=== PATIENT | female | born 1955 | race Two or more races ===

== ENCOUNTER 2021-07-23 10:12 | Emergency (ER) | payer MEDICARE, SELFPAY ==
--- NOTE | ~2021-07-23 | XR_ITS ---
EXAMINATION: XR CHEST CLINICAL INFORMATION: Cough COMPARISON: None TECHNIQUE: 2 views of the chest were obtained. FINDINGS: Very slight bibasilar atelectasis. No pneumothorax. Trachea is midline. Cardiomediastinal silhouette is not enlarged. Aorta demonstrates mild tortuosity with atherosclerotic calcifications. No large pleural effusion. Levocurvature of the thoracic spine with multilevel degenerative changes. Soft tissues are unremarkable. XR/XR chest 2V IMPRESSION: Very slight bibasilar atelectasis.
[2021-07-23 10:27] VITALS: BP 154/71; PULSE 64; RESP 19; TEMP 36.6; O2SAT 94; BMI 31.6
[2021-07-23 10:51] LABS: IDNOW Serial# 08D9AD1C; Strep A Nucleic Acid Negative (Negative)
[2021-07-23 11:09] LABS: COVID-19 Test Positive (Negative); IDNOW Serial# 16C4AD1C; Influenza A Negative (Negative); Influenza B2 Negative (Negative)
[2021-07-23] MEDS: Albuterol Sulfate 90 MCG 8 GM INHALER 2 PUFF INHALE (11:45)
[2021-07-23 11:47] VITALS: PULSE 91; RESP 16; O2SAT 97
--- NOTE | 2021-07-23 11:57 | ED_ITS ---
HPI - URI/Sore Throat General Chief Complaint: Upper Respiratory Symptoms Stated Complaint: covid symptoms, + home test Time Seen by Provider: 07/23/21 11:14 Source: patient Mode of arrival: ambulatory Limitations: language barrier History of Present Illness HPI Narrative: 66-year-old female presents for sore throat, dry cough, and body aches that started 4 days ago. Patient has a positive COVID test at home. She denies chest pain, shortness of breath, fever, abdominal pain, lightheadedness, dizziness, nausea, vomiting, diarrhea. Patient has been able to eat and drink. Related Data Previous Rx's Medication Instructions Recorded albuterol sulfate 90 mcg/actuation 2 puff inhalation Q4-6H PRN 07/23/21 aerosol inhaler shortness of breath or wheezing #6.7 grams codeine 10 mg-guaifenesin 100 mg/5 5 ml PO Q6H PRN cough #200 mL 07/23/21 mL oral liquid doxycycline hyclate 100 mg capsule 100 mg PO BID 10 days #20 caps 07/23/21 Allergies Allergy/AdvReac Type Severity Reaction Status Date / Time iodine Allergy Unknown Unknown Verified 07/23/21 11:32 Review of Systems Constitutional: Constitutional: Reports body ache(s), Denies chills, Reports fatigue, Denies fever(s), Denies headache(s), Denies malaise and Denies weakness Eyes: Eyes: Denies diplopia ENT: Denies vertigo, Denies dizziness, Denies otalgia, Denies headache(s), Denies mouth pain, Denies post nasal drip, Denies sinus pain, Denies sinus pressure, Reports sore throat and Denies throat swelling Cardiovascular: Cardiovascular: Denies chest pain, Denies syncope, Denies leg edema, Denies lightheadedness, Denies Loss of Consciousness, Denies palpitations and Denies dyspnea Respiratory: Respiratory: Denies chest congestion, Reports cough and Denies dyspnea Gastrointestinal: Gastrointestinal: Denies abdominal pain, Denies hematochezia, Denies constipation, Denies diarrhea, Reports nausea and Denies vomiting Musculoskeletal: Musculoskeletal: Reports no additional musculoskeletal complaints Neurologic: Denies confusion, Denies vertigo, Denies dizziness, Denies syncope, Denies headache(s) and Denies weakness Psychiatric: Psychiatric: Denies anxiety, Denies confusion and Denies depression Endocrine: Endocrine: Reports fatigue and Denies palpitations Allergic/Immunologic: Allergic/Immunologic: Denies throat swelling PMFSH Social History Social History Advance Directives: No Advance Directives Information Provided: No Physical Exam Vital Signs: Vital Signs: Last Vital Signs Temp 98 F 07/23/21 10:27 Pulse 91 07/23/21 11:47 Resp 16 07/23/21 11:47 BP 154/71 H 07/23/21 10:27 Pulse Ox 94 07/23/21 10:27 O2 Del Method 07/23/21 10:27 BMI result Body Mass Index 31.6 Const: General: No confusion Nutritional Appearance: well nourished Orientation/consciousness: No confusion Limitations: no limitations HEENT: Head: Yes normal to inspection, Yes normocephalic and Yes atraumatic Ears: hearing grossly normal bilaterally, external ears normal, TM's normal bilaterally and EAC's normal General nose exam: Normal external nose present Face and sinus: Yes normal facial exam and Yes sinuses nontender Mouth: Normal oral and palatal mucosa present Throat: Yes posterior oropharynx normal Eyes: Conjunctivae: conjunctivae normal Pupils: Equal, round and reactive pupils present EOM: EOMs intact bilaterally Neck: Neck: Yes full ROM, Yes no lymphadenopathy and Yes supple Resp: Effort & Inspection: normal respiratory effort and able to speak in complete sentences Auscultation: clear to auscultation bilaterally, no crackles, no rales, no rhonchi and no wheezes Cardio: Rate: regular rate Rhythm: regular rhythm Heart sounds: S1 normal heart sound present and S2 normal heart sound present GI: Inspection: Yes normal to inspection Palpation (GI): Soft to palpation, nontender, no guarding and not rigid Percussion: Yes normal to percussion Auscultation: normal bowel sounds Skin: General skin exam: no rashes or lesions noted Neuro: General: No confusion Cranial nerves: Yes Equal, round and reactive pupils present Extrem: General: Yes normal to inspection and Yes full ROM Psych: Appearance: grossly normal Affect: normal affect Attitude: cooperative Thought process: Normal thought process present Course Course Course Narrative: 66-year-old female who tested positive for COVID at home, presents for evaluation of sore throat, dry cough, body aches that started 4 days ago. On exam, patient has stable vitals, is afebrile, lungs are mildly diminished. Patient is positive for COVID, negative for strep, negative for flu. Chest x-ray shows very slight basal atelectasis. Will start patient on Doxycyline for pneumonia prophylaxis patient given albuterol inhaler, prescribed cough syrup in with codeine, counseled patient to quarantine at home for the next 5 days. referred patient to [facility] for monoclonal on a antibody treatment, as she is greater than 65 years old and has an additional risk factor of diabetes. Counseled patient to buy a pulse oximeter, and return to the emergency room if she has a pulse oximeter reading less than 90%, chest pain, shortness of breath, or any other new or concerning symptoms the patient verbalized agreement understanding of the plan Reevaluation(s) Reevaluation #1: FINDINGS: Very slight bibasilar atelectasis. No pneumothorax. Trachea is midline. Cardiomediastinal silhouette is not enlarged. Aorta demonstrates mild tortuosity with atherosclerotic calcifications. No large pleural effusion. Levocurvature of the thoracic spine with multilevel degenerative changes. Soft tissues are unremarkable. XR/XR chest 2V IMPRESSION: Very slight bibasilar atelectasis. MDM - URI/Sore Throat Lab Data Labs: Lab Results 07/23/21 07/23/21 07/23/21 Range/Units 10:32 10:32 10:32 COVID-19 ([facility]) Positive A (Negative) COVID-19 Clin Com See Note Influenza Type A ([facility]) Negative (Negative) Influenza Type B ([facility]) Negative (Negative) Influenza A & B Note See Note S. pyogenes GrpA SANGITA Negative (Negative) Discharge Plan Discharge Clinical Impression: COVID-19 Patient Disposition: Home, Self-Care Instructions: COVID-19 (Coronavirus Disease 2019) (ED) Additional Instructions: Please use your albuterol inhaler, 2 puffs every 4 hours while you are awake for the next 3 or 4 days. Please fill the prescription for cough syrup, and take it as prescribed. Do not drive while you are taking the cough syrup, or operate machinery. Please use ibuprofen, this will help with your sore throat, in addition you can use salt water gargles, 1 tsp of salt in a couple of warm water, and gargle, do this twice a day. In addition, I have referred you to [facility]; they provide monoclonal antibody treatment. Their phone number is [phone] they should be calling you, but please call them this afternoon if you have not heard from them by the end of the day. In addition, use your pulse oximeter, if your oxygen saturation falls below 90%, if you have chest pain or shortness of breath, please return to the emergency room to be seen your chest x-ray shows a possible pneumonia. I will treat with doxycycline, please complete this course of antibiotics that I have prescribed to her pharmacy [employer] inhalador de albuterol, 2 inhalaciones cada 4 horas mientras est? despierto michelle los pr?ximos 3 o 4 d?as. Complete la receta del jarabe para la tos y t?reese seg?n lo prescrito. No conduzca mientras est? tomando el jarabe para la tos ni opere maquinaria. Use ibuprofeno, esto le ayudar? con el dolor de garganta, adem?s puede hacer g?rgaras con agua salada, 1 cucharadita de clemente en un par de agua tibia y hacer g?rgaras, campbell esto dos veces al d?a. Adem?s, te he referido a [facility]; proporcionan tratamiento con anticuerpos monoclonales. Ford n?stephon de tel?fono es [phone] deber?an estar llam?ndolo, shu ll?melos esta tarde si no russ tenido noticias suyas al final del d?a. Adem?s, use ford ox?metro de pulso, si ford saturaci?n de ox?hossein por debajo del 90%, si tiene dolor en el pecho o dificultad para respirar, regrese a la flaquita de emergencias para que lo atiendan. ford radiograf?a de t?rax muestra xiomy posible neumon?a. Lo tratar? con doxiciclina, complete lise ciclo de antibi?ticos que le he recetado a ford farmacia. Prescriptions: New albuterol sulfate 90 mcg/actuation HFA aerosol inhaler 2 puff inhalation Q4-6H PRN (Reason: shortness of breath or wheezing) Qty: 6.7 0RF codeine-guaifenesin 10-100 mg/5 mL liquid 5 ml PO Q6H PRN (Reason: cough) Qty: 200 0RF doxycycline hyclate 100 mg capsule 100 mg PO BID 10 Days Qty: 20 0RF Print Language: Wolof
== END 2021-07-23 12:26 | disposition home or self-care (01) ==
PROVIDERS: Emergency Provider Emergency Medicine; PCP Family Medicine
DX: U07.1 COVID-19 (principal)
CPT/HCPCS: 71046; 87502; 87635; 87651; 94640; 99282; 99284